=== PATIENT | female | born 1960 | race Caucasian/White ===

== ENCOUNTER 2022-03-03 10:07 | Outpatient (CLI) | payer BC | END 2022-03-03 10:08 | disposition home or self-care (01) | LOC: CSHLAB 10:07 | PROVIDERS: ATTEND Orthopaedic Surgery | DX: Z01.818 Encounter for other preprocedural examination (principal); Z20.822 Contact with and (suspected) exposure to COVID-19 | CPT/HCPCS: 93005; 93010; U0003; U0005 ==

== ENCOUNTER 2022-03-06 09:41 | Observation (INO) | payer BC ==
[2022-03-03 11:11] VITALS: BMI 30.1
[2022-03-06] MEDS ORDERED: EPINEPHrine 1 MG/ML AMP ONE (10:30)
[2022-03-06] MEDS ORDERED: Bupivacaine 0.25% HCL 30 ML VIAL ONE (10:30)
[2022-03-06] MEDS ORDERED: Lidocaine 1% (PF) 30 ML VIAL ONE (10:30)
[2022-03-06] MEDS ORDERED: Lidocaine 1% MPF 2 ML VIAL ONE (11:00)
[2022-03-06] MEDS ORDERED: Ketamine 50 MG/ML (10ML VIAL) ONE (11:15)
[2022-03-06] MEDS ORDERED: Phenylephrine 10 MG/ML VIAL ONE (11:15)
[2022-03-06] MEDS ORDERED: HYDROmorphone 0.5 MG/0.5 ML SYRINGE ONE ×4 (11:16→15:57)
[2022-03-06] MEDS ORDERED: Propofol 1,000 MG/100 ML VIAL IV ONE (11:17)
[2022-03-06] MEDS ORDERED: Midazolam HCl 2 mg/2 ml Vial ONE (11:23)
[2022-03-06] MEDS ORDERED: Fentanyl 100 MCG/2 ML VIAL ONE ×4 (11:23→15:26)
[2022-03-06] MEDS ORDERED: Ondansetron PF 4 MG/2 ML Vial ONE ×2 (11:25→14:29)
[2022-03-06] MEDS ORDERED: Rocuronium Bromide 10 MG/ML (10ML VIAL) ONE (11:25)
[2022-03-06] MEDS ORDERED: Lidocaine 1% PF 5 ML VIAL ONE (11:25)
[2022-03-06] MEDS ORDERED: Dexamethasone 4 mg/ml Vial ONE (11:25)
[2022-03-06] MEDS ORDERED: Succinylcholine 200 MG/10 ml SYRINGE FS ONE (11:26)
[2022-03-06] MEDS ORDERED: CEFAZOLIN 1 GM VIAL ONE (11:29)
[2022-03-06] MEDS ORDERED: PROPOFOL 20 ML ONE (11:30)
[2022-03-06] MEDS ORDERED: Pantoprazole 40 MG VIAL ONE ×3 (11:37→11:38)
[2022-03-06] MEDS ORDERED: PHENYLEPHRINE-NS 100 MCG/ML 10 ML SYRINGE ONE (11:49)
[2022-03-06] MEDS ORDERED: ePHEDrine Sulfate 50 MG/10 ML VIAL ONE (11:54)
[2022-03-06] MEDS ORDERED: SUGAMMADEX SODIUM 200 MG/2 ML VIAL ONE (13:23)
[2022-03-06] MEDS ORDERED: Albuterol Sulfate HFA (OR ONLY) ONE (14:08)
[2022-03-06] MEDS ORDERED: Ondansetron PF 4 MG/2 ML Vial SLOW IVP PRN (14:58)
[2022-03-06] MEDS ORDERED: Acetaminophen 325 MG TAB PO PRN (14:58)
[2022-03-06] MEDS ORDERED: traZODone HCl 50 MG TAB PO PRN (15:00)
[2022-03-06] MEDS ORDERED: ALPRAZolam 0.25 MG TAB PO PRN (15:00)
[2022-03-06] MEDS ORDERED: Ventolin HFA Inhaler 60 PUFF INHALER INH PRN (15:00)
[2022-03-06] MEDS ORDERED: Cyclobenzaprine 10 MG TAB PO PRN (15:00)
[2022-03-06] MEDS ORDERED: Fluticasone Propionate Nasal Spray 16 gm Bottle NASAL PRN (15:00)
[2022-03-06] MEDS ORDERED: Communication Order-Pharmacy FS PRN (15:00)
[2022-03-06] MEDS ORDERED: tiZANidine HCl 4 MG TAB PO PRN (18:18)
[2022-03-06] MEDS: Morphine 4 MG/ML VIAL SLOW IVP PRN ×2 (18:27→22:47)
[2022-03-06] MEDS: CEFAZOLIN 2 GM in Sodium Chloride 0.9% 100 ML IVPB SCH (20:20)
[2022-03-06] MEDS: Gabapentin 300 MG CAP PO SCH (20:47)
[2022-03-06] MEDS: HYDROcodone/Acetaminophen 10/325 mg Tablet PO PRN (20:48)
[2022-03-06] MEDS: Aspirin 81 mg Enteric Coated Tablet PO SCH (20:51)
[2022-03-06] MEDS ORDERED: Pramipexole Di-HCl 0.25 MG TAB PO SCH (21:00)
[2022-03-06] MEDS ORDERED: Escitalopram Oxalate 20 mg Tablet PO SCH (21:00)
[2022-03-06] MEDS ORDERED: Non-Formulary Medication 1 EACH (Biotin [Biotin] 10,000 MCG Capsule) PO SCH (21:00)
[2022-03-06] MEDS ORDERED: Atorvastatin Calcium 20 MG TAB PO SCH (21:00)
[2022-03-06] MEDS ORDERED: Amlodipine 5 MG TAB PO SCH (21:00)
[2022-03-07] MEDS: Morphine 4 MG/ML VIAL SLOW IVP PRN ×3 (03:11→08:31)
[2022-03-07] MEDS: CEFAZOLIN 2 GM in Sodium Chloride 0.9% 100 ML IVPB SCH ×3 (03:12→12:29)
[2022-03-07] MEDS: HYDROcodone/Acetaminophen 10/325 mg Tablet PO PRN ×2 (04:40→11:48)
[2022-03-07] MEDS ORDERED: Levothyroxine Sodium 100 MCG TAB PO SCH (06:00)
[2022-03-07] MEDS: Aspirin 81 mg Enteric Coated Tablet PO SCH (08:29)
[2022-03-07] MEDS: Gabapentin 300 MG CAP PO SCH (08:30)
[2022-03-07 08:38] VITALS: TEMP 96.9
[2022-03-07] MEDS ORDERED: Atenolol 50 MG TAB PO SCH (09:00)
[2022-03-07] MEDS ORDERED: Meloxicam 7.5 MG TAB PO SCH (09:00)
[2022-03-07] MEDS ORDERED: Estradiol 1 MG TAB PO SCH (09:00)
[2022-03-07] MEDS ORDERED: Hydrochlorothiazide 25 MG TAB PO SCH (09:00)
[2022-03-07] MEDS ORDERED: Loratadine 10 MG TAB PO SCH (09:00)
[2022-03-07] MEDS ORDERED: Multivit, Therapeutic 1 TAB PO SCH (09:00)
[2022-03-07] MEDS ORDERED: Cholecalciferol 1,000 UNITS (25 MCG) TAB PO SCH (09:00)
[2022-03-07 11:27] VITALS: BP 97/47
== END 2022-03-07 12:29 | disposition home or self-care (01) ==
LOC: CSHSDC 09:41 → INTOOBSV 17:19 → CSHTELE 17:19
PROVIDERS: ADMIT Orthopaedic Surgery; ATTEND Orthopaedic Surgery
PROC: 0JH70DZ Insertion of Multiple Array Stimulator Generator into Back Subcutaneous Tissue and Fascia, Open Approach (ICD-10-PCS; principal; 2022-03-07)
PROC: 00HU0MZ Insertion of Neurostimulator Lead into Spinal Canal, Open Approach (ICD-10-PCS; 2022-03-07)
DX: G89.29 Other chronic pain (principal); M54.50 Low back pain, unspecified; M79.606 Pain in leg, unspecified; M41.9 Scoliosis, unspecified; M48.04 Spinal stenosis, thoracic region; I10 Essential (primary) hypertension; E03.9 Hypothyroidism, unspecified; K21.9 Gastro-esophageal reflux disease without esophagitis; F17.200 Nicotine dependence, unspecified, uncomplicated; Z79.1 Long term (current) use of non-steroidal anti-inflammatories (NSAID); Z79.890 Hormone replacement therapy; Z79.899 Other long term (current) drug therapy; Z88.0 Allergy status to penicillin; Z88.2 Allergy status to sulfonamides; Z88.5 Allergy status to narcotic agent; Z98.1 Arthrodesis status; Z01.818 Encounter for other preprocedural examination; Z20.822 Contact with and (suspected) exposure to COVID-19
CPT/HCPCS: 72072; 93005; 93010; 94760; 96374; 96375; 96376; C1778; C1820; C1889; C9113; G0378; J0171; J0690; J1100; J1170; J2001; J2250; J2270; J2370; J2405; J2704; J3010; J3490; S0020; U0003; U0005